=== PATIENT | female | born 1995 | race Caucasian/White ===

== ENCOUNTER 2017-02-18 19:33 | Emergency (ER) | payer OTHER ==
[~2017-02-18] VITALS: Ht 162.6 cm; Wt 74.8 kg
[2017-02-18] MEDS ORDERED: ZOFRAN ODT ONE (19:45)
[2017-02-18] MEDS ORDERED: ZOFRAN ODT SL STA (19:55)
[2017-02-18] MEDS ORDERED: NS 1000ML IV STA (20:04)
--- NOTE | 2017-02-18 20:04 | ER.PDOC ---
General Chief Complaint: Nausea,Vomiting,Diarrhea Stated Complaint: POSSIBLE DEHYDRATION,NAUSEATED,VOMITING Time seen by MD: 17:58 Source: patient Exam Limitations: no limitations History of Present Illness Initial Comments developed n/v after a flight from [place] to [place], drove to [place]. has been vomiting since her second leg of flight. Gets motion sick. history of CF, DM, has a port right chest she prefers to use. Occurred: this afternoon Severity: severe Associated Symptoms: vestibular, nausea/vomiting, sense of movement (pressure in face/sinuses) Usually: walks w/o assistance Worsened By: nothing Prior symptoms/Treatment: Similar symptoms previous Allergies: Coded Allergies: diazepam (Verified Allergy, Unknown, 02/18/17) tobramycin (Verified Allergy, Unknown, 02/18/17) Uncoded Allergies: zybox (Allergy, Unknown, 02/18/17) Vital Signs First Vital Signs Date Time Temp Pulse Resp B/P Pulse Ox O2 Delivery O2 Flow Rate FiO2 02/18/17 19:46 97.9 70 16 99 02/18/17 20:50 152/90 02/18/17 21:54 Room Air Last Vital Signs Date Time Temp Pulse Resp B/P Pulse Ox O2 Delivery O2 Flow Rate FiO2 02/18/17 21:54 78 16 98 Room Air 02/18/17 21:43 97.9 142/86 Past Medical History Medical History: asthma, diabetes Surgical History: cholecystectomy LMP (females 10-50): DEPO Social History Smoking: non-smoker Alcohol Use: none Drug Use: none Reviewed Nursing Reviewed: Vital Signs, Abn. Noted Nursing Assessment Review of Systems Constitutional: no symptoms reported Eyes: no symptoms reported Ears: no symptoms reported Nose: no symptoms reported Mouth: no symptoms reported Throat: no symptoms reported Respiratory: no symptoms reported Cardiovascular: no symptoms reported Gastrointestinal: see HPI Genitourinary: no symptoms reported Musculoskeletal: no symptoms reported Skin: no symptoms reported Psychiatric/Neurological: see HPI All Other Systems: Reviewed and Negative Physical Exam General Appearance: alert, mild distress EENT: nml eye inspection, PERRL Neck: supple Respiratory: no resp distress, breath sounds nml CVS: reg rate & rhythm, heart sounds.nml Abdomen: non-tender Neuro/Psych: nml orientation, nml speech/cognition Cranial Nerves: nml as tested Cerebellar: nml as tested Results/Orders Results/Orders Laboratory Tests Test 02/18/17 21:04 Bedside Glucose 140 (70 - 110) Administered Medications Medications (Trade) Dose Ordered Sig/Fan Route PRN Reason Start Time Stop Time Status Last Admin Dose Admin Ondansetron HCl (Zofran Odt) 4 mg STAT STAT SL 02/18/17 19:55 02/18/17 19:56 DC 02/18/17 19:56 Promethazine HCl (Phenergan) 25 mg STAT STAT IV 02/18/17 20:27 02/18/17 20:29 DC 02/18/17 20:30 Pantoprazole Sodium (Protonix Iv) 40 mg STAT STAT IV 02/18/17 20:49 02/18/17 20:50 DC 02/18/17 20:51 Departure Time of Disposition: 18:51 Disposition: 01 HOME, SELF-CARE Impression: Primary Impression: Intractable nausea and vomiting Condition: Stable Referrals: PCP,UNKNOWN (PCP) PRIMARY CARE PROVIDER Additional Instructions: follow up with PCP Rx Phenergan supp 25mg 1 q 4 prn Problem Qualifiers Primary Impression: Intractable nausea and vomiting Vomiting type: unspecified Qualified Code: R11.2 - Nausea with vomiting, unspecified JOCELIN DUNLAP MD Feb 18, 2017 20:04
[2017-02-18] MEDS ORDERED: NS 1000ML 1,000 ML ONE (20:09)
--- NOTE | 2017-02-18 20:20 | NUR ---
NS 1000ML BOLUS STARTED NS 1000ML BOLUS STARTED THROUGH PORT RIGHT CHEST USING 19G/1 INCH USING STERILE TECHNIQUE
[2017-02-18] MEDS ORDERED: PHENERGAN ONE (20:23)
[2017-02-18] MEDS ORDERED: PHENERGAN IV STA (20:27)
[2017-02-18] MEDS ORDERED: PROTONIX IV IV ONE ×2 (20:48→20:50)
[2017-02-18] MEDS ORDERED: PROTONIX IV IV STA (20:49)
--- NOTE | 2017-02-18 21:47 | NUR ---
NS 1000ML STOPPED NS INFUSION COMPLETE, STOPPED
--- NOTE | 2017-02-18 21:48 | NUR ---
IV DC'D PACKED WITH HEPARIN 5ML AND BANDAGED PLACED, NO BLEEDING
[2017-02-18 21:54] VITALS: BP 142/86
== END 2017-02-18 21:50 | disposition home or self-care (01) ==
LOC: ER 19:33
DX: R11.2 Nausea with vomiting, unspecified (principal); E11.9 Type 2 diabetes mellitus without complications; J45.909 Unspecified asthma, uncomplicated; Z88.1 Allergy status to other antibiotic agents; Z88.8 Allergy status to other drugs, medicaments and biological substances
CPT/HCPCS: 82948; 96361; 96374; 96375; 99284; C9113; J1642; J2550; J7030; Q0162